=== PATIENT | male | born 1965 | race Two or more races ===

== ENCOUNTER 2025-05-21 07:10 | Day surgery (SDC) | payer OTHER, SELFPAY ==
[2025-05-21] VITALS (11 sets, daily range): BP systolic 95–147; BP diastolic 73–92; PULSE 66–77; RESP 12–23; TEMP 36.3–36.4; O2SAT 92–100; BMI 29.6
[2025-05-21] MEDS: fentaNYL CIT INJ 50 mCg/ML AMP 2ML (ASD USE ONLY) IVP (09:37)
[2025-05-21] MEDS: SODIUM CHLORIDE 0.9% 500 ML 500 ML 20 ML IV (09:37)
[2025-05-21] MEDS: MIDAZOLAM INJ 1 MG/ML VIAL 2 ML (ASD USE ONLY) 2 MG IVP (09:37)
== END 2025-05-21 10:30 | disposition home or self-care (01) ==
PROVIDERS: PCP Family Medicine; Referring Provider Specialist; Visit Provider Specialist
PROC: 0DBE8ZX Excision of Large Intestine, Via Natural or Artificial Opening Endoscopic, Diagnostic (ICD-10-PCS; CPT 45380; principal; 2025-05-21 08:30)
DX: Z12.11 Encounter for screening for malignant neoplasm of colon (principal); K64.2 Third degree hemorrhoids
CPT/HCPCS: 45398; J1200; J2250; J3010; J7999